=== PATIENT | male | born 1980 | race Caucasian/White ===

== ENCOUNTER 2016-07-28 15:05 | Emergency (ER) | payer OTHER ==
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
[~2016-07-28 15:05] MED LIST: FLEXERIL PO; LORTAB 10/500 T1 TAB PO; VICODIN 5/500 T1 TAB PO
== END 2016-07-28 17:48 | disposition home or self-care (01) ==
LOC: SED 15:05
DX: S00.93XA Contusion of unspecified part of head, initial encounter (principal); S30.0XXA Contusion of lower back and pelvis, initial encounter; S20.212A Contusion of left front wall of thorax, initial encounter; Y04.0XXA Assault by unarmed brawl or fight, initial encounter; Y92.009 Unspecified place in unspecified non-institutional (private) residence as the place of occurrence of the external cause
CPT/HCPCS: 70450; 99284